=== PATIENT | female | born 1945 | race Caucasian/White ===

== ENCOUNTER 2017-01-26 16:52 | Inpatient (IN) | payer MEDICARE, OTHER ==
[~2017-01-26] VITALS: Ht 160 cm; Wt 75.6 kg
--- NOTE | 2017-01-26 17:31 | PD ---
HPI Chief Complaint: Psychiatric Symptoms Time Seen by Provider: 17:18 Travel History International Travel<30 days: No Contact w/Intl Traveler<30days: No Traveled to known affect area: No History of Present Illness HPI Patient is very disorganized thoughts during HPI. She does not answer some questions with appropriate answers. 71-year-old female presents under [place] act. According to law enforcement report "patient unable to provide coherent history-[] says this is sudden change-she is unable to care for self." The patient denies suicidal or homicidal ideations. Denies history of suicidal attempt. Denies visual or auditory hallucinations. But does say that she sees things clearly now and has a plan to face reality by finding someone who can except the whole truth about what she went through with her . She says her was a compulsive liar and lied to her about everything, except for his name. She says when she has a mental breakdown she forgets everything. Reports history of COPD and hypertension. Says she's takes antipsychotic medications. Reports smoking marijuana. Denies other illicit drug use. Dr. Montero is primary care provider in [place]. [facility] Social History Tobacco Use: No Allergies-Medications (Allergen,Severity, Reaction): Coded Allergies: NSAIDS (Non-Steroidal Anti-Inflamma (Verified Allergy, Unknown, 01/26/17) Penicillins (Verified Allergy, Unknown, 01/26/17) Sulfa (Sulfonamide Antibiotics) (Verified Allergy, Unknown, 01/26/17) lurasidone (Verified Allergy, Unknown, 01/26/17) oxycodone (Verified Allergy, Unknown, 01/26/17) tamoxifen (Verified Allergy, Unknown, 01/26/17) tramadol (Verified Allergy, Unknown, 01/26/17) Reported Meds & Prescriptions Reported Meds & Active Scripts Active Reported Lisinopril 10 Mg Tab 10 Mg PO DAILY Ventolin Hfa 18 GM Inh (Albuterol Sulfate) 90 Mcg/Act Aer 2 Puff INH Q4-6H PRN Lamotrigine 25 Mg Tab 25 Mg PO DAILY Hydroxyzine HCl 10 Mg Tab 10 Mg PO BID Bupropion HCl ER 24 HR (Bupropion HCl) 150 Mg Tab 150 Mg PO DAILY Atrovent HFA 12.9 GM Inh (Ipratropium [place]) 17 Mcg/Actuation Aer 2 Puff INH Q6HR PRN Trazodone (Trazodone HCl) 50 Mg Tab 50 Mg PO HS Fluoxetine (Fluoxetine HCl) 20 Mg Capsule 20 Mg PO DAILY Metoprolol Tartrate 25 Mg Tab 25 Mg PO BID Review of Systems Except as stated in HPI: all other systems reviewed are Neg Physical Exam Narrative GENERAL: Well-nourished, well-developed elderly, female patient, in no acute distress SKIN: Warm and dry. HEAD: Atraumatic. Normocephalic. No facial droop noted. Tongue midline. EYES: Pupils equal and round at 2 mm with brisk reaction. No scleral icterus. No injection or drainage. PERRLA. EOMI. ENT: Mucosa pink and moist. Airway patent. NECK: Trachea midline. No lymphadenopathy. CARDIOVASCULAR: Regular rate and rhythm. No murmur appreciated. RESPIRATORY: No accessory muscle use. Clear to auscultation. Breath sounds equal bilaterally. GASTROINTESTINAL: Abdomen soft, non-tender, nondistended. Hepatic and splenic margins not palpable. Bowel sounds are active 4 quadrants. BACK: No CVA tenderness. MUSCULOSKELETAL: No obvious deformities. No clubbing. No cyanosis. No edema. NEUROLOGICAL: Awake and alert. Oriented 4. No obvious cranial nerve deficits. Motor grossly within normal limits. Normal speech. No ataxia. No mid -line drift. Finger to nose test normal. Moves all extremities. 5/5 strength to all extremities. PSYCHIATRIC: Appropriate mood and affect; insight and judgment normal. Data Data Last Documented VS Vital Signs Date Time Temp Pulse Resp B/P (MAP) Pulse Ox O2 Delivery O2 Flow Rate FiO2 01/26/17 18:00 98.8 77 18 175/76 (109) 97 Room Air Orders Orders Complete Blood Count With Diff (01/26/17 17:31) Comprehensive Metabolic Panel (01/26/17 17:31) Urinalysis - C+S If Indicated (01/26/17 17:31) Psych Screen (01/26/17 17:31) Drug Screen, Random Urine (01/26/17 17:31) Alcohol (Ethanol) (01/26/17 17:31) Salicylates (Aspirin) (01/26/17 17:31) Tylenol (Acetaminophen) (01/26/17 17:31) Ct Brain W/O Iv Contrast(Rout) (01/26/17 ) Acetaminophen (Tylenol) (01/26/17 20:30) Labs Laboratory Tests Test 01/26/17 18:00 White Blood Count 4.8 TH/MM3 Red Blood Count 4.24 MIL/MM3 Hemoglobin 13.1 GM/DL Hematocrit 39.1 % Mean Corpuscular Volume 92.2 FL Mean Corpuscular Hemoglobin 30.8 PG Mean Corpuscular Hemoglobin Concent 33.4 % Red Cell Distribution Width 13.6 % Platelet Count 196 TH/MM3 Mean Platelet Volume 7.9 FL Neutrophils (%) (Auto) 61.6 % Lymphocytes (%) (Auto) 22.0 % Monocytes (%) (Auto) 12.4 % Eosinophils (%) (Auto) 3.3 % Basophils (%) (Auto) 0.7 % Neutrophils # (Auto) 2.9 TH/MM3 Lymphocytes # (Auto) 1.0 TH/MM3 Monocytes # (Auto) 0.6 TH/MM3 Eosinophils # (Auto) 0.2 TH/MM3 Basophils # (Auto) 0.0 TH/MM3 CBC Comment DIFF FINAL Differential Comment Blood Urea Nitrogen 13 MG/DL Creatinine 0.78 MG/DL Random Glucose 97 MG/DL Total Protein 7.5 GM/DL Albumin 3.8 GM/DL Calcium Level 8.9 MG/DL Alkaline Phosphatase 95 U/L Aspartate Amino Transf (AST/SGOT) 19 U/L Alanine Aminotransferase (ALT/SGPT) 26 U/L Total Bilirubin 0.5 MG/DL Sodium Level 138 MEQ/L Potassium Level 3.9 MEQ/L Chloride Level 103 MEQ/L Carbon Dioxide Level 30.1 MEQ/L Anion Gap 5 MEQ/L Estimat Glomerular Filtration Rate 73 ML/MIN Salicylates Level LESS THAN 1.7 MG/DL Acetaminophen Level LESS THAN 2.0 MCG/ML Ethyl Alcohol Level LESS THAN 3 MG/DL [facility] Medical Decision Making Medical Screen Exam Complete: Yes Emergency Medical Condition: Yes Medical Record Reviewed: Yes Differential Diagnosis Altered mental status, urinary tract infection, dementia, psychosis Narrative Course Patient presents under a De La O act. Physical examination and vital signs are essentially unremarkable. Patient has no medical complaints to report. Psych screen has been ordered. If the laboratory results are unremarkable, the patient will be medically cleared for psychiatric evaluation and disposition. CBC, CMP, toxicology unremarkable. CT head concluded: Head CT 01/26/17 0000 Signed Impressions: Service Date/Time: Thursday, January 26, 2017 18:12 - CONCLUSION: Negative noncontrast CT brain. Chris Hernandez MD Urinalysis pending. Diagnosis Primary Impression: Medical clearance for psychiatric admission Condition: Stable Cori Mg [employer]LO[employer] PROGRAM DIRECTOR Jan 26, 2017 17:31
[2017-01-26 18:00] VITALS: BP 175/76; PULSE 77; RESP 18; TEMP 98.8; O2SAT 97
--- NOTE | 2017-01-26 18:30 | RADRPT ---
EXAM DATE/TIME: 01/26/2017 18:12 [place] COMPARISON: No previous studies available for comparison. INDICATIONS : Altered mental status. RADIATION DOSE: 29.72 CTDIvol (mGy) MEDICAL HISTORY : None SURGICAL HISTORY : None. ENCOUNTER: Initial ACUITY: 1 day PAIN SCALE: 0/10 LOCATION: cranial TECHNIQUE: Multiple contiguous axial images were obtained of the head. Using automated exposure control and adj ustment of the mA and/or kV according to patient size, radiation dose was kept as low as reasonably a chievable to obtain optimal diagnostic quality images. DICOM format image data is available electro nically for review and comparison. FINDINGS: CEREBRUM: The ventricles are normal for age. No evidence of midline shift, mass lesion, hemorrhage or acute in farction. No extra-axial fluid collections are seen. POSTERIOR FOSSA: The cerebellum and brainstem are intact. The 4th ventricle is midline. The cerebellopontine angle i s unremarkable. EXTRACRANIAL: The visualized portion of the orbits is intact. SKULL: The calvaria is intact. No evidence of skull fracture. CONCLUSION: Negative noncontrast CT brain. Chris Hernandez MD on January 26, 2017 at 18:27 Board Certified Radiologist. This report was verified electronically.
[2017-01-26 18:37] LABS: AUTOMATED NEUTROPHIL # 2.9 TH/MM3 (1.8-7.7); BASOPHIL % 0.7 % (0.0-2.0); EOSINOPHIL # 0.2 TH/MM3 (0-0.4); EOSINOPHIL % 3.3 % (0.0-4.0); HEMATOCRIT 39.1 % (35.0-46.0); HEMO FLAGS DIFF FINAL; MEAN CELL VOLUME 92.2 FL (80.0-100.0); MEAN CORPUSCULAR HEMOGLOBIN 30.8 PG (27.0-34.0); MEAN CORPUSCULAR HGB CONC 33.4 % (32.0-36.0); MONO % 12.4 % (0.0-8.0); NEUT % 61.6 % (16.0-70.0); PLATELET COUNT 196 TH/MM3 (150-450); RED BLOOD COUNT 4.24 MIL/MM3 (4.00-5.30); RED CELL DISTRIBUTION WIDTH 13.6 % (11.6-17.2); WHITE BLOOD COUNT 4.8 TH/MM3 (4.0-11.0)
[2017-01-26] MEDS ORDERED: METO25TA3 PO (18:37)
[2017-01-26] MEDS ORDERED: LAMO25TA PO (18:37)
[2017-01-26] MEDS ORDERED: HYDR-755 PO (18:37)
[2017-01-26] MEDS ORDERED: FLUO20CA12 PO (18:37)
[2017-01-26] MEDS ORDERED: IPRA17I INH (18:37)
[2017-01-26] MEDS ORDERED: LISI10TA3 PO (18:37)
[2017-01-26] MEDS ORDERED: TRAZ50TA12 PO (18:37)
[2017-01-26] MEDS ORDERED: BUPR150T3 PO (18:37)
[2017-01-26] MEDS ORDERED: VENTAER INH (18:37)
[2017-01-26 18:58] LABS: ANION GAP 5 MEQ/L (5-15); AST (GOT) 19 U/L (15-37); BICARBONATE 30.1 MEQ/L (21.0-32.0); BLOOD UREA NITROGEN 13 MG/DL (7-18); CHLORIDE 103 MEQ/L (98-107); GLOMERULAR FILTRATION RATE 73 ML/MIN (>89); POTASSIUM 3.9 MEQ/L (3.5-5.1); SODIUM (NA) 138 MEQ/L (136-145)
[2017-01-26 18:59] LABS: ALT (GPT) 26 U/L (10-53)
[2017-01-26 19:01] LABS: ALKALINE PHOSPHATASE 95 U/L (45-117); TOTAL BILIRUBIN ADULT 0.5 MG/DL (0.2-1.0)
[2017-01-26 19:09] LABS: ACETAMINOPHEN LESS THAN 2.0 MCG/ML (10.0-30.0); ALCOHOL LESS THAN 3 MG/DL (0-5)
--- NOTE | 2017-01-26 19:20 | PD ---
History of Present Illness Chief Complaint: Psychiatric Symptoms Time Seen by Provider: 18:50 Travel History International Travel<30 Days: No Contact w/Intl Traveler<30days: No Known affected area: No Legal Status Legal Status: Involuntary (Dr. Martinez) History of Present Illness: History of Present Illness HPI Patient is a 71-year-old female who presents to the emergency Department under an involuntary status having been sent to the hospital by her outpatient psychiatrist Dr. Martinez. The report gives her a diagnosis of psychosis NOS. Supporting evidence states patient unable to provide coherent history. Boyfriend says this is sudden change. She is unable to care for herself. As per information obtained from the patient as well as from a phone call that the psychiatrist made to nursing staff the patient had a change in her medication within the last 1-2 weeks. She was started on lamotrigine around 1-2 weeks ago. There is no previous history with this patient. The patient is seen in main ED she is awake and alert response to her name. She is aware that she is in the hospital. She is cooperative and very pleasant. Her thoughts are disorganized and she is unable to engage in providing any kind of logical history. When I ask her why she is here she states" I've tried to find the cause but every time I try to find out I get lost." She does tell me that since she started the Lamictal " the Lamictal has helped me find what I had hidden". She then goes on to say that she is in crisis because she started the Lamictal. She does deny any suicidal or homicidal ideation. Patient perseverates on trying to" find what is hidden" and "trying to find the cause of her breakdowns". No other clinical information is obtained at this time due to her inability to participate in evaluation. As per ED documentation the patient reports having smoked marijuana. Toxicology report is pending. . [facility] Past Medical History Anxiety: Yes Depression: Yes COPD: Yes ?: Not Tubal Ligation: Yes Past Surgical History Tympanostomy Tube: Yes Psychiatric History Psychiatric History Hx Psychiatric Treatment: Has been in outpatient care with Dr. Martinez. Patient does tell me that she was once admitted here but there is no record of such visit History of Inpatient Treatment: Yes Guns or firearms in home: No (unable to confirm at this time) Social History Per documentation on the chart the patient is and she is living with a boyfriend. She is a retired nurse. Hx Alcohol Use: No Hx Tobacco Use: No Hx Substance Use: No Substance Use Type: Marijuana (pending toxicology confirmation) Hx of Substance Use Treatment: No Family Psychiatric History Unable to obtain Allergies-Medications (Allergen,Severity, Reaction): Coded Allergies: NSAIDS (Non-Steroidal Anti-Inflamma (Verified Allergy, Unknown, 01/26/17) Penicillins (Verified Allergy, Unknown, 01/26/17) Sulfa (Sulfonamide Antibiotics) (Verified Allergy, Unknown, 01/26/17) lurasidone (Verified Allergy, Unknown, 01/26/17) oxycodone (Verified Allergy, Unknown, 01/26/17) tamoxifen (Verified Allergy, Unknown, 01/26/17) tramadol (Verified Allergy, Unknown, 01/26/17) Reported Meds & Prescriptions Reported Meds & Active Scripts Active Reported Lisinopril 10 Mg Tab 10 Mg PO DAILY Ventolin Hfa 18 GM Inh (Albuterol Sulfate) 90 Mcg/Act Aer 2 Puff INH Q4-6H PRN Lamotrigine 25 Mg Tab 25 Mg PO DAILY Hydroxyzine HCl 10 Mg Tab 10 Mg PO BID Bupropion HCl ER 24 HR (Bupropion HCl) 150 Mg Tab 150 Mg PO DAILY Atrovent HFA 12.9 GM Inh (Ipratropium [place]) 17 Mcg/Actuation Aer 2 Puff INH Q6HR PRN Trazodone (Trazodone HCl) 50 Mg Tab 50 Mg PO HS Fluoxetine (Fluoxetine HCl) 20 Mg Capsule 20 Mg PO DAILY Metoprolol Tartrate 25 Mg Tab 25 Mg PO BID Review of Systems ROS Limitations: Poor Historian Mental Status Examination Appearance: Appropriate, Well dressed/well groomed Consciousness: Alert Orientation: Person, Place, Situation Motor Activity: Normal gait (patient remained in bed) Speech: Other (incoherent at times) Language: Perseveration (on finding the cause) Fund of Knowledge: Poor (not tested) Attention and Concentration: Easily Distracted Memory: Impaired Mood: Anxious Affect: Appropriate Thought Process & Associations: Circumstantial, Disorganized, Tangential Thought Content: Other (perseverates on finding the cause) Hallucination Type: None (does not appear internally stimulated) Delusion Type: None Suicidal Ideation: No Suicidal Plan: No Suicidal Intention: No Homicidal Ideation: No Homicidal Plan: No Insight: Poor Judgment: Poor MDM Medical Decision Making Medical Record Reviewed: Yes Assessment/Plan Patient is a 71-year-old female who presents to the emergency Department under an involuntary status having been sent to the hospital by her outpatient psychiatrist Dr. Martinez. The report gives her a diagnosis of psychosis NOS. Supporting evidence states patient unable to provide coherent history. Boyfriend says this is sudden change. She is unable to care for herself. As per information obtained from the patient as well as from a phone call that the psychiatrist made to nursing staff the patient had a change in her medication within the last 1-2 weeks. She was started on lamotrigine around 1-2 weeks ago. There is no previous history with this patient. The patient remains disorganized, with incoherent thought patterns that time and unable to provide a logical history. Patient meets required for increased level of care is provided on inpatient psychiatric unit. She meets criteria for involuntary admission at this time. She will be admitted under the care of Dr. Schreiber. Patient unable to care for herself at this time. Orders Orders Complete Blood Count With Diff (01/26/17 17:31) Comprehensive Metabolic Panel (01/26/17 17:31) Urinalysis - C+S If Indicated (01/26/17 17:31) Psych Screen (01/26/17 17:31) Drug Screen, Random Urine (01/26/17 17:31) Alcohol (Ethanol) (01/26/17 17:31) Salicylates (Aspirin) (01/26/17 17:31) Tylenol (Acetaminophen) (01/26/17 17:31) Ct Brain W/O Iv Contrast(Rout) (01/26/17 ) Results Vital Signs Date Time Temp Pulse Resp B/P (MAP) Pulse Ox O2 Delivery O2 Flow Rate FiO2 01/26/17 18:00 98.8 77 18 175/76 (109) 97 Room Air Laboratory Tests Test 01/26/17 18:00 White Blood Count 4.8 Red Blood Count 4.24 Hemoglobin 13.1 Hematocrit 39.1 Mean Corpuscular Volume 92.2 Mean Corpuscular Hemoglobin 30.8 Mean Corpuscular Hemoglobin Concent 33.4 Red Cell Distribution Width 13.6 Platelet Count 196 Mean Platelet Volume 7.9 Neutrophils (%) (Auto) 61.6 Lymphocytes (%) (Auto) 22.0 Monocytes (%) (Auto) 12.4 Eosinophils (%) (Auto) 3.3 Basophils (%) (Auto) 0.7 Neutrophils # (Auto) 2.9 Lymphocytes # (Auto) 1.0 Monocytes # (Auto) 0.6 Eosinophils # (Auto) 0.2 Basophils # (Auto) 0.0 CBC Comment DIFF FINAL Differential Comment Blood Urea Nitrogen 13 Creatinine 0.78 Random Glucose 97 Total Protein 7.5 Albumin 3.8 Calcium Level 8.9 Alkaline Phosphatase 95 Aspartate Amino Transf (AST/SGOT) 19 Alanine Aminotransferase (ALT/SGPT) 26 Total Bilirubin 0.5 Sodium Level 138 Potassium Level 3.9 Chloride Level 103 Carbon Dioxide Level 30.1 Anion Gap 5 Estimat Glomerular Filtration Rate 73 Salicylates Level LESS THAN 1.7 Acetaminophen Level LESS THAN 2.0 Ethyl Alcohol Level LESS THAN 3 Diagnosis Primary Impression: Psychosis Admitting Information Admitting Physician Requests: Admit Problem Qualifiers Primary Impression: Psychosis Qualified Codes: F29 - Unspecified psychosis not due to a substance or known physiological condition Dhara Muñiz [facility] Jan 26, 2017 19:20
[2017-01-26] MEDS ORDERED: ACETAMINOPHEN 325 MG TAB PO ONE (20:30)
[2017-01-26] MEDS ORDERED: MAGNESIUM HYDROXIDE SUSP 30 ML CUP PO PRN (21:30)
[2017-01-26] MEDS ORDERED: ALUMINUM/MAGNESIUM/SIMETH 30 ML CUP PO PRN (21:30)
[2017-01-26 21:54] LABS: BLOOD, URINE TRACE (NEG); COMMENT (UR) CULT NOT INDICATED; CULTURE IF INDICATED CULT NOT INDICATED; GLUCOSE,URINE NEG (NEG); KETONE, URINE NEG (NEG); NITRITE,URINE NEG (NEG); PH, URINE 6.5 (5.0-8.5); SQUAMOUS EPITHELIAL CELL URINE <1 /hpf (0-5); URINE COLOR LIGHT-YELLOW (YELLW/STRAW)
[2017-01-26 22:42] VITALS: BP 171/72; PULSE 82; RESP 16; O2SAT 95
[2017-01-26] MEDS ORDERED: METOPROLOL TARTRATE 25 MG TAB PO ONE (23:00)
[2017-01-26 23:35] VITALS: BP 169/74; PULSE 76; RESP 18; TEMP 97.7; O2SAT 97
[2017-01-27 05:32] VITALS: BP 159/72; PULSE 78; RESP 16; TEMP 98.1; O2SAT 96
[2017-01-27] MEDS ORDERED: ALBUTEROL SULFATE 90 MCG/ACT HFA 8 GM INHALER INH PRN (07:15)
[2017-01-27] MEDS ORDERED: RESP: IPRATROPIUM 0.5 MG/2.5 ML NEB INH PRN (07:15)
[2017-01-27 07:44] LABS: ANION GAP 5 MEQ/L (5-15); BLOOD UREA NITROGEN 12 MG/DL (7-18); CHLORIDE 103 MEQ/L (98-107); GLOMERULAR FILTRATION RATE 80 ML/MIN (>89); POTASSIUM 4.3 MEQ/L (3.5-5.1); SODIUM (NA) 139 MEQ/L (136-145)
[2017-01-27 08:16] LABS: LDL CHOLESTEROL 61 MG/DL (0-99)
[2017-01-27] MEDS: METOPROLOL TARTRATE 25 MG TAB PO SCH ×2 (08:39→21:23)
[2017-01-27] MEDS: ACETAMINOPHEN 325 MG TAB PO PRN ×2 (08:39→13:51)
[2017-01-27] MEDS: LISINOPRIL 10 MG TAB PO SCH (08:40)
--- NOTE | 2017-01-27 10:30 | EKG ---
Date Performed: 01/26/2017 Time Performed: 22:36:39 PTAGE: 71 years EKG: Sinus rhythm WITH OCCASIONAL SUPRAVENTRICULAR PREMATURE COMPLEXES BORDERLINE ECG NO PREVIOUS TRACING DOCTOR: Panda Yang Interpretating Date/Time 01/27/2017 10:27:23
[2017-01-27 10:51] LABS: HEMOGLOBIN A1a 1.1 %; HEMOGLOBIN A1b 0.8 %; HEMOGLOBIN Ao 86.2 %; HEMOGLOBIN F 0.8 %; HEMOGLOBIN LA1C 1.9 %; HEMOGLOBIN P3 3.6 %
--- NOTE | 2017-01-27 13:44 | PD.CONS ---
HPI Service [facility] Hospitalists Consult Requested By Dr. 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 Patient has a past medical history which includes COPD, hypertension anxiety and breast cancer status post right breast lumpectomy and radiation treatment. Patient is currently admitted to inpatient psychiatric center for psychosis not otherwise specified. Patient was involuntarily admitted by outpatient psychiatrist Dr. Martinez, who was covering for her outpatient psychiatrist Dr. Canchola. Patient is currently unreliable therefore information gathered from patient as well as prior computerized charting.. Appears the patient was started on Lamotrigine approximately weeks ago. Patient's boyfriend reported to the ER physician that he has noticed a sudden change in her actions and mental state. There is no report of shortness of breath, chest pain, nausea, vomiting, diarrhea, constipation, fevers, chills, cough or congestion. Review of Systems ROS Limitations: Psychotic, Poor Historian Constitutional: DENIES: Fatigue, Fever, Chills Eyes: DENIES: Blurred vision, Diplopia, Vision loss Respiratory: DENIES: Cough, Sputum production, Shortness of breath Cardiovascular: DENIES: Chest pain, Palpitations, Lower Extremity Edema Gastrointestinal: DENIES: Abdominal pain, Constipation, Diarrhea Neurologic: DENIES: Headache, Localized weakness, Speech Problems Psychiatric: COMPLAINS OF: Confusion, DENIES: Anxiety, Depression Past Family Social History Past Medical History COPD, hypertension, anxiety and breast cancer status post right breast lumpectomy and radiation Past Surgical History Right breast lumpectomy, tubal ligation, right knee replacement Reported Medications Lisinopril 10 Mg Tab 10 Mg PO DAILY Ventolin Hfa 18 GM Inh (Albuterol Sulfate) 90 Mcg/Act Aer 2 Puff INH Q4-6H PRN Lamotrigine 25 Mg Tab 25 Mg PO DAILY Hydroxyzine HCl 10 Mg Tab 10 Mg PO BID Bupropion HCl ER 24 HR (Bupropion HCl) 150 Mg Tab 150 Mg PO DAILY Atrovent HFA 12.9 GM Inh (Ipratropium [place]) 17 Mcg/Actuation Aer 2 Puff INH Q6HR PRN Trazodone (Trazodone HCl) 50 Mg Tab 50 Mg PO HS Fluoxetine (Fluoxetine HCl) 20 Mg Capsule 20 Mg PO DAILY Metoprolol Tartrate 25 Mg Tab 25 Mg PO BID Allergies: Coded Allergies: NSAIDS (Non-Steroidal Anti-Inflamma (Verified Allergy, Unknown, 01/26/17) Penicillins (Verified Allergy, Unknown, 01/26/17) Sulfa (Sulfonamide Antibiotics) (Verified Allergy, Unknown, 01/26/17) lurasidone (Verified Allergy, Unknown, 01/26/17) oxycodone (Verified Allergy, Unknown, 01/26/17) tamoxifen (Verified Allergy, Unknown, 01/26/17) tramadol (Verified Allergy, Unknown, 01/26/17) Active Ordered Medications Current Medications Medications (Trade) Dose Ordered Sig/Sukhi Route Start Time Stop Time Status Last Admin (Tylenol) 650 mg Q4H PRN PO 01/26/17 21:30 01/27/17 08:39 (Milk Of Magnesia Liq) 30 ml DAILY PRN PO 01/26/17 21:30 (Mag-Al Plus Susp Liq) 30 ml Q6H PRN PO 01/26/17 21:30 (Proair Hfa Inh) 2 puff Q4HR PRN INH 01/27/17 07:15 (Atrovent Neb) 0.5 mg Q6HR NEB PRN INH 01/27/17 07:15 (Prinivil) 10 mg DAILY PO 01/27/17 09:00 01/27/17 08:40 (Lopressor) 25 mg BID PO 01/27/17 09:00 01/27/17 08:39 (Desyrel) 50 mg HS PO 01/27/17 21:00 Future Hold (Wellbutrin Xl 24 Hr) 150 mg DAILY PO 01/27/17 13:45 UNV (PROzac) 20 mg DAILY PO 01/27/17 13:45 UNV Family History Father at 67 secondary to OR, Brother of PCP secondary to HIV Social History Patient lives at home with her significant other Occasional glass of wine Denies current tobacco use quit smoking in 1997 Physical Exam Vital Signs Vital Signs Date Time Temp Pulse Resp B/P (MAP) Pulse Ox O2 Delivery O2 Flow Rate FiO2 01/27/17 05:32 98.1 78 16 159/72 (101) 96 01/26/17 23:35 97.7 76 18 169/74 (105) 97 01/26/17 23:34 01/26/17 22:42 82 16 171/72 (105) 95 Room Air 01/26/17 18:00 98.8 77 18 175/76 (109) 97 Room Air Physical Exam GENERAL: This is a well-nourished, well-developed patient, appears confused with circular conversation SKIN: No rashes, ecchymoses or lesions. Cool and dry. HEAD: Atraumatic. Normocephalic. No temporal or scalp tenderness. EYES: Extraocular motions intact. No scleral icterus. No injection or drainage. CARDIOVASCULAR: Regular rate and rhythm RESPIRATORY: Clear to auscultation. Breath sounds equal bilaterally. GASTROINTESTINAL: Abdomen soft, non-tender, nondistended. No hepato-splenomegaly , or palpable masses. No guarding. MUSCULOSKELETAL: Extremities without clubbing, cyanosis, or edema. No joint tenderness, effusion, or edema noted. No calf tenderness. Negative Homans sign bilaterally. NEUROLOGICAL: Awake and alert, circular/fragmented conversation. No focal deficits noted. Motor and sensory grossly within normal limits. 5 out of 5 muscle strength in all muscle groups. Laboratory Laboratory Tests Test 01/26/17 18:00 01/26/17 21:16 01/27/17 06:28 White Blood Count 4.8 Red Blood Count 4.24 Hemoglobin 13.1 Hematocrit 39.1 Mean Corpuscular Volume 92.2 Mean Corpuscular Hemoglobin 30.8 Mean Corpuscular Hemoglobin Concent 33.4 Red Cell Distribution Width 13.6 Platelet Count 196 Mean Platelet Volume 7.9 Neutrophils (%) (Auto) 61.6 Lymphocytes (%) (Auto) 22.0 Monocytes (%) (Auto) 12.4 Eosinophils (%) (Auto) 3.3 Basophils (%) (Auto) 0.7 Neutrophils # (Auto) 2.9 Lymphocytes # (Auto) 1.0 Monocytes # (Auto) 0.6 Eosinophils # (Auto) 0.2 Basophils # (Auto) 0.0 CBC Comment DIFF FINAL Differential Comment Blood Urea Nitrogen 13 12 Creatinine 0.78 0.72 Random Glucose 97 89 Total Protein 7.5 Albumin 3.8 Calcium Level 8.9 8.7 Alkaline Phosphatase 95 Aspartate Amino Transf (AST/SGOT) 19 Alanine Aminotransferase (ALT/SGPT) 26 Total Bilirubin 0.5 Sodium Level 138 139 Potassium Level 3.9 4.3 Chloride Level 103 103 Carbon Dioxide Level 30.1 31.0 Anion Gap 5 5 Estimat Glomerular Filtration Rate 73 80 Salicylates Level LESS THAN 1.7 Acetaminophen Level LESS THAN 2.0 Ethyl Alcohol Level LESS THAN 3 Urine Color LIGHT-YELLOW Urine Turbidity CLEAR Urine pH 6.5 Urine Specific [place] 1.008 Urine Protein NEG Urine Glucose (UA) NEG Urine Ketones NEG Urine Occult Blood TRACE Urine Nitrite NEG Urine Bilirubin NEG Urine Urobilinogen LESS THAN 2.0 Urine Leukocyte Esterase SMALL Urine RBC 2 Urine WBC 1 Urine Squamous Epithelial Cells <1 Microscopic Urinalysis Comment CULT NOT INDICATED Urine Opiates Screen NEG Urine Barbiturates Screen NEG Urine Amphetamines Screen NEG Urine Benzodiazepines Screen NEG Urine Cocaine Screen NEG Urine Cannabinoids Screen NEG Hemoglobin A1c 5.1 Triglycerides Level 72 Cholesterol Level 192 LDL Cholesterol 61 HDL Cholesterol 117.0 Cholesterol/HDL Ratio 1.64 Vitamin B12 Level 466 25-Hydroxy Vitamin D Total 28.5 Result Diagram: 01/26/17 1800 01/27/17 0628 Imaging Last Impressions Head CT 01/26/17 0000 Signed Impressions: Service Date/Time: Thursday, January 26, 2017 18:12 - CONCLUSION: Negative noncontrast CT brain. Chris Hernandez MD Assessment and Plan Problem List: (1) Psychosis ICD Codes: F29 - Unspecified psychosis not due to a substance or known physiological condition Status: Acute Plan: Psychosis Patient reports being started recently on Lamictal by outpatient psychiatrist management per physiatric team CT head reviewed negative noncontrast CT brain WBC 4.8, patient afebrile UA reviewed no culture indicated HTN blood pressure noted to be high concerned that has not been taking her antihypertensive medication due to current mental state resume home Metoprolol 25 mg BID and Lisinopril 10 mg daily monitor BP trend COPD does not appear to be in acute exacerbation resume patient's home Anoro Ellipta daily Duonebs as needed DVT prophylaxis encourage ambulation (2) HTN (hypertension) ICD Codes: I10 - Essential (primary) hypertension (3) COPD (chronic obstructive pulmonary disease) ICD Codes: J44.9 - Chronic obstructive pulmonary disease, unspecified Problem Qualifiers (1) Psychosis: Qualified Codes: F29 - Unspecified psychosis not due to a substance or known physiological condition Jessica Aranda Jan 27, 2017 13:44
--- NOTE | 2017-01-27 13:47 | HHI.HP ---
Provisional Diagnosis Admission Date Jan 26, 2017 at 21:31 [place] I. Unspecified psychotic disorder Certification of Person's Competence To Provide Express and Informed Consent I have personally examined Maria L Hendricks , a person being served at [facility] on, Jan 27, 2017 13:32. Express and informed consent means consent voluntarily given in writing, by a competent person, after sufficient explanation and disclosure of the subject matter involved to enable the person to make a knowing and willful decision without any element of force, fraud, deceit, duress, or other form of constraint or coercion. This person is 18 years of age or older, is not now known to be incompetent to consent to treatment with a guardian advocate, and does not have a health care surrogate or proxy currently making medical treatment decisions. I have found this person to be one of the following: [] Competent to provide express and informed consent, as defined above, for voluntary admission to this facility and is competent to provide express and informed consent for treatment. He/she has the consistent capacity to make well reasoned, willful, and knowing decisions concerning his or her medical or mental health treatment. The person fully and consistently understands the purpose of the admission for examination/placement and is fully capable of personally exercising all rights assured under [place] [x] Incompetent to provide express and informed consent to voluntary admission, and this is incompetent to provide express and informed consent to treatment. The person must be transferred to involuntary status and a petition for a guardian advocate filed with the Circuit Court. [] Refusing to provide express and informed consent to voluntary admission but is competent to provide express and informed consent for treatment. The person must be discharged or transferred to involuntary status. Form shall be completed within 24 hours of a person's arrival at the receiving facility and filed in the clinical record of each person: 1. Admitted on a voluntary basis 2. Permitted to provide express and informed consent to his/her own treatment 3. Allowed to transfer from involuntary to voluntary status 4. Prior to permitting a person to consent to his or her own treatment after having been previously found incompetent to consent to treatment. 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 As per [place] act "patient unable to provide coherent history, sudden change, unable to care for self". As per ED note patient denied any SI, HI, perceptual disturbances but did state that her was "liar" and the patient was sent to the hospital from her outpatient provider Dr. Martniez with concerns of patient being unable to care for self at this time. Patient found sitting in hospital bed, cooperative with interview today. Patient states that she had a recent drug reaction to Lamictal that was prescribed to her recently 4 days ago by her outpatient psychiatrist, Dr. Forrest. She states that she had noticed that her speech had been or rapid, "talking fast" and feeling nervous; "I was hyper" . Patient states that her boyfriend had stated that she was a different person recently. Patient at this time is alert and oriented 3. Patient states that she had a "nervous breakdown" at return back to her outpatient psychiatrist office but was seen by a covering psychiatrist, Dr. Martinez who was covering for Dr. Canchola and had suggested that she be brought to the hospital due to [place] act "because I was very nervous and tearful". Patient this time has difficulty recalling recent events surrounding her recent start of Lamictal that she believed caused her presentation. Patient states that she having much difficulty with memory stating "I got my time like a fuse" and believes that he might have been due to previous stroke or having "nervous breakdown". Family psychiatric history: Mother with depression, no suicide in a family Past psychiatric history: Previous psychiatric diagnoses depression and anxiety , 1 previous psychiatric hospitalization years ago, no previous suicide attempt or self-injurious behavior. Outpatient psychiatric provider is . Recent medication regimen includes Wellbutrin, Prozac, Lamictal and previously Latuda. Patient denies any history of abuse. Substance use history: Patient reports marijuana use once per week, last time being 1 month ago, EtOH socially last happy one month ago patient denies use of any other illegal substances. Past medical history: COPD, hypertension, primary care doctor is in [place]. 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 Collateral contact: Linda [phone] Review of Systems Except as stated in HPI: all other systems reviewed are Neg Past Psych History Psychological trauma history Denies Violence risk - others (6 mos) Low Violence risk - self (6 mos) Low Substance Abuse History Drugs/Alcohol past 12 months Patient reports marijuana use once per week, last time being 1 month ago, EtOH socially last happy one month ago patient denies use of any other illegal substances. Past Family Social History Coded Allergies: NSAIDS (Non-Steroidal Anti-Inflamma (Verified Allergy, Unknown, 01/26/17) Penicillins (Verified Allergy, Unknown, 01/26/17) Sulfa (Sulfonamide Antibiotics) (Verified Allergy, Unknown, 01/26/17) lurasidone (Verified Allergy, Unknown, 01/26/17) oxycodone (Verified Allergy, Unknown, 01/26/17) tamoxifen (Verified Allergy, Unknown, 01/26/17) tramadol (Verified Allergy, Unknown, 01/26/17) Reported Medications Lisinopril (Lisinopril) 10 Mg Tab, 10 MG PO DAILY, #30 TAB 0 Refills 01/26/17 Albuterol 18 GM Inh (Ventolin Hfa 18 GM Inh) 90 Mcg/Act Aer, 2 PUFF INH Q4-6H Y for SHORTNESS OF BREATH, #1 INHALER 0 Refills 01/26/17 Lamotrigine (Lamotrigine) 25 Mg Tab, 25 MG PO DAILY for Control Seizures, #30 TAB 0 Refills 01/26/17 Hydroxyzine HCl (Hydroxyzine HCl) 10 Mg Tab, 10 MG PO BID, TAB 0 Refills 01/26/17 Bupropion HCl ER 24 HR (Bupropion HCl ER 24 HR) 150 Mg Tab, 150 MG PO DAILY for Control Depression, TAB 0 Refills 01/26/17 Ipratropium HFA 12.9 GM Inh (Atrovent HFA 12.9 GM Inh) 17 Mcg/Actuation Aer, 2 PUFF INH Q6HR Y for SHORTNESS OF BREATH, #1 INHALER 0 Refills 01/26/17 Trazodone (Trazodone) 50 Mg Tab, 50 MG PO HS for Control Depression, #30 TAB 0 Refills 01/26/17 Fluoxetine (Fluoxetine) 20 Mg Capsule, 20 MG PO DAILY, #30 CAP 0 Refills 01/26/17 Metoprolol Tartrate (Metoprolol Tartrate) 25 Mg Tab, 25 MG PO BID, #60 TAB 0 Refills 01/26/17 Current Medications Medications (Trade) Dose Ordered Sig/Sukhi Route Start Time Stop Time Status Last Admin (Tylenol) 650 mg Q4H PRN PO 01/26/17 21:30 01/27/17 08:39 (Milk Of Magnesia Liq) 30 ml DAILY PRN PO 01/26/17 21:30 (Mag-Al Plus Susp Liq) 30 ml Q6H PRN PO 01/26/17 21:30 (Proair Hfa Inh) 2 puff Q4HR PRN INH 01/27/17 07:15 (Atrovent Neb) 0.5 mg Q6HR NEB PRN INH 01/27/17 07:15 (Prinivil) 10 mg DAILY PO 01/27/17 09:00 01/27/17 08:40 (Lopressor) 25 mg BID PO 01/27/17 09:00 01/27/17 08:39 (Desyrel) 50 mg HS PO 01/27/17 21:00 Future Hold Family Psych History Mother with depression, no suicides in the family Social History , retired nurse, lives with boyfriend, supportive social security benefits, denies access to firearms. Patient's Strengths (min. 2) Verbal and communicative Physical Exam Patient noted to be in acute distress, no gross motor abnormalities noted this time, no tremors or EPS, no evidence of psychomotor agitation or retardation. Vital Signs Vital Signs Date Time Temp Pulse Resp B/P (MAP) Pulse Ox O2 Delivery O2 Flow Rate FiO2 01/27/17 05:32 98.1 78 16 159/72 (101) 96 01/26/17 22:42 Room Air Lab Results Labs reviewed. Test 01/26/17 18:00 01/26/17 21:16 01/27/17 06:28 White Blood Count 4.8 TH/MM3 Red Blood Count 4.24 MIL/MM3 Hemoglobin 13.1 GM/DL Hematocrit 39.1 % Mean Corpuscular Volume 92.2 FL Mean Corpuscular Hemoglobin 30.8 PG Mean Corpuscular Hemoglobin Concent 33.4 % Red Cell Distribution Width 13.6 % Platelet Count 196 TH/MM3 Mean Platelet Volume 7.9 FL Neutrophils (%) (Auto) 61.6 % Lymphocytes (%) (Auto) 22.0 % Monocytes (%) (Auto) 12.4 % Eosinophils (%) (Auto) 3.3 % Basophils (%) (Auto) 0.7 % Neutrophils # (Auto) 2.9 TH/MM3 Lymphocytes # (Auto) 1.0 TH/MM3 Monocytes # (Auto) 0.6 TH/MM3 Eosinophils # (Auto) 0.2 TH/MM3 Basophils # (Auto) 0.0 TH/MM3 CBC Comment DIFF FINAL Differential Comment Blood Urea Nitrogen 13 MG/DL 12 MG/DL Creatinine 0.78 MG/DL 0.72 MG/DL Random Glucose 97 MG/DL 89 MG/DL Total Protein 7.5 GM/DL Albumin 3.8 GM/DL Calcium Level 8.9 MG/DL 8.7 MG/DL Alkaline Phosphatase 95 U/L Aspartate Amino Transf (AST/SGOT) 19 U/L Alanine Aminotransferase (ALT/SGPT) 26 U/L Total Bilirubin 0.5 MG/DL Sodium Level 138 MEQ/L 139 MEQ/L Potassium Level 3.9 MEQ/L 4.3 MEQ/L Chloride Level 103 MEQ/L 103 MEQ/L Carbon Dioxide Level 30.1 MEQ/L 31.0 MEQ/L Anion Gap 5 MEQ/L 5 MEQ/L Estimat Glomerular Filtration Rate 73 ML/MIN 80 ML/MIN Salicylates Level LESS THAN 1.7 MG/DL Acetaminophen Level LESS THAN 2.0 MCG/ML Ethyl Alcohol Level LESS THAN 3 MG/DL Urine Color LIGHT-YELLOW Urine Turbidity CLEAR Urine pH 6.5 Urine Specific [place] 1.008 Urine Protein NEG mg/dL Urine Glucose (UA) NEG mg/dL Urine Ketones NEG mg/dL Urine Occult Blood TRACE Urine Nitrite NEG Urine Bilirubin NEG Urine Urobilinogen LESS THAN 2.0 MG/DL Urine Leukocyte Esterase SMALL Urine RBC 2 /hpf Urine WBC 1 /hpf Urine Squamous Epithelial Cells <1 /hpf Microscopic Urinalysis Comment CULT NOT INDICATED Urine Opiates Screen NEG Urine Barbiturates Screen NEG Urine Amphetamines Screen NEG Urine Benzodiazepines Screen NEG Urine Cocaine Screen NEG Urine Cannabinoids Screen NEG Hemoglobin A1c 5.1 % Triglycerides Level 72 MG/DL Cholesterol Level 192 MG/DL LDL Cholesterol 61 MG/DL HDL Cholesterol 117.0 MG/DL Cholesterol/HDL Ratio 1.64 RATIO Vitamin B12 Level 466 PG/ML 25-Hydroxy Vitamin D Total 28.5 ng/ML Mental Status Examination Appearance: Appropriate, Well dressed/well groomed Consciousness: Alert Orientation: Person, Place, Situation Motor Activity: Normal gait Speech: Unremarkable Language: Adequate Fund of Knowledge: Poor (not tested) Attention and Concentration: Adequate Memory: Impaired Mood: Anxious Affect: Appropriate Thought Process & Associations: Linear Thought Content: Other (perseverates on finding the cause) Hallucination Type: None Delusion Type: None Suicidal Ideation: No Suicidal Plan: No Suicidal Intention: No Homicidal Ideation: No Homicidal Plan: No Homicidal Intention: No Insight: Poor Judgment: Poor Assessment & Plan Problem List: (1) Psychosis ICD Codes: F29 - Unspecified psychosis not due to a substance or known physiological condition Status: Acute Assessment & Plan Estimated LOS: 5-7 days. Patient is a 71-year-old woman who carries a diagnosis of depression and anxiety, 1 remote psychiatric hospitalization, marijuana use disorder, who was brought in under [employer] act for concerns of ability care for self. Patient at this time noted to be confused and poor memory regarding recent events surrounding her admission. Patient will recently just referred to the hospital from outpatient mental health provider with concern of patient's recent mental status changes. Unclear whether patient 's recent mental status is due to underlying medical etiology or to primary psychotic disorder. Patient's presentation today that elicit any mood or psychotic symptoms but noted to have some confusion and memory impairment regarding recent events prior to her admission. Due to patient's history of documented symptoms and behavior as per outpatient provider there is concern for patient's ability to care for self at this time has collateral still pending. We'll petition patient for involuntary admission, second opinion requested. We'll continue patient on Wellbutrin and Prozac will defer from starting antipsychotic as patient has no psychotic symptoms elicited at this time. We'll continue to monitor mood and behavior. Collateral information pending. Hospital consult placed for management of medical issues. Discharge planning in progress Discharge Planning Patient to return back to boyfriend's residence once psychiatrically stable Problem Qualifiers (1) Psychosis: Qualified Codes: F29 - Unspecified psychosis not due to a substance or known physiological condition Reinaldo George MD Jan 27, 2017 13:47
[2017-01-27] MEDS: buPROPion HCL 150 MG SUSTAINED RELEASE TAB PO SCH (14:09)
[2017-01-27] MEDS: FLUoxetine HCL 20 MG CAP PO SCH (14:09)
[2017-01-27] MEDS ORDERED: UMEC1AER INH (15:43)
[2017-01-27 16:41] VITALS: BP 157/78; PULSE 73; RESP 17; TEMP 98; O2SAT 95
[2017-01-27] MEDS ORDERED: RESP: ALBUTEROL 2.5 MG/IPRATROPIUM 0.5 MG NEB (PRN) NEB (17:00)
[2017-01-28 05:37] VITALS: BP 149/69; PULSE 68; RESP 18; TEMP 97.4; O2SAT 96
[2017-01-28] MEDS: LISINOPRIL 10 MG TAB PO SCH (08:30)
[2017-01-28] MEDS: buPROPion HCL 150 MG SUSTAINED RELEASE TAB PO SCH (08:30)
[2017-01-28] MEDS: METOPROLOL TARTRATE 25 MG TAB PO SCH ×2 (08:30→21:54)
[2017-01-28] MEDS: FLUoxetine HCL 20 MG CAP PO SCH (08:31)
[2017-01-28] MEDS: UMECLIDINIUM 62.5 MCG/VILANTEROL 25 MCG INHALER INH SCH (08:34)
--- NOTE | 2017-01-28 11:21 | PD.PSY.CON ---
Provisional Diagnosis Admission Date Jan 26, 2017 at 21:31 [place] I. Unspecified psychotic disorder History of Present Illness Service Psychiatry Consult Requested By Dr. 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 As per [place] act "patient unable to provide coherent history, sudden change, unable to care for self". As per ED note patient denied any SI, HI, perceptual disturbances but did state that her was "liar" and the patient was sent to the hospital from her outpatient provider Dr. Martinez with concerns of patient being unable to care for self at this time. Patient found sitting in hospital bed, cooperative with interview today. Patient states that she had a recent drug reaction to Lamictal that was prescribed to her recently 4 days ago by her outpatient psychiatrist, Dr. Forrest. She states that she had noticed that her speech had been or rapid, "talking fast" and feeling nervous; "I was hyper" . Patient states that her boyfriend had stated that she was a different person recently. Patient at this time is alert and oriented 3. Patient states that she had a "nervous breakdown" at return back to her outpatient psychiatrist office but was seen by a covering psychiatrist, Dr. Martinez who was covering for Dr. Canchola and had suggested that she be brought to the hospital due to [place] act "because I was very nervous and tearful". Patient this time has difficulty recalling recent events surrounding her recent start of Lamictal that she believed caused her presentation. Patient states that she having much difficulty with memory stating "I got my time like a fuse" and believes that he might have been due to previous stroke or having "nervous breakdown". Family psychiatric history: Mother with depression, no suicide in a family Past psychiatric history: Previous psychiatric diagnoses depression and anxiety , 1 previous psychiatric hospitalization years ago, no previous suicide attempt or self-injurious behavior. Outpatient psychiatric provider is . Recent medication regimen includes Wellbutrin, Prozac, Lamictal and previously Latuda. Patient denies any history of abuse. Substance use history: Patient reports marijuana use once per week, last time being 1 month ago, EtOH socially last happy one month ago patient denies use of any other illegal substances. Past medical history: COPD, hypertension, primary care doctor is in [place]. 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 Collateral contact: Linda [phone] 01/28/17 Above note dictated by Dr. George reviewed and agreed with. Patient seen in her room with nurse Varner. Patient alert though somewhat confused rambling with pressured speech is quite tangential given at times somewhat confusing history of this hospitalization. Patient is been admitted to Dr. George service. He has done first opinion petition supporting [place] act. I agree. Patient meets criteria for inpatient psychiatric hospitalization under the [place] act thus I will cosign second opinion petition supporting De [place] act Past Family Social History Coded Allergies: NSAIDS (Non-Steroidal Anti-Inflamma (Verified Allergy, Unknown, 01/26/17) Penicillins (Verified Allergy, Unknown, 01/26/17) Sulfa (Sulfonamide Antibiotics) (Verified Allergy, Unknown, 01/26/17) lurasidone (Verified Allergy, Unknown, 01/26/17) oxycodone (Verified Allergy, Unknown, 01/26/17) tamoxifen (Verified Allergy, Unknown, 01/26/17) tramadol (Verified Allergy, Unknown, 01/26/17) Reported Medications Umeclidinium-Vilanterol Inh (Anoro Ellipta Inh) 62.5-25 Mcg/Act Aero, 1 PUFF INH DAILY for COPD, #1 INHALER 0 Refills 01/27/17 Lisinopril (Lisinopril) 10 Mg Tab, 10 MG PO DAILY, #30 TAB 0 Refills 01/26/17 Albuterol 18 GM Inh (Ventolin Hfa 18 GM Inh) 90 Mcg/Act Aer, 2 PUFF INH Q4-6H Y for SHORTNESS OF BREATH, #1 INHALER 0 Refills 01/26/17 Lamotrigine (Lamotrigine) 25 Mg Tab, 25 MG PO DAILY for Control Seizures, #30 TAB 0 Refills 01/26/17 Hydroxyzine HCl (Hydroxyzine HCl) 10 Mg Tab, 10 MG PO BID, TAB 0 Refills 01/26/17 Bupropion HCl ER 24 HR (Bupropion HCl ER 24 HR) 150 Mg Tab, 150 MG PO DAILY for Control Depression, TAB 0 Refills 01/26/17 Ipratropium HFA 12.9 GM Inh (Atrovent HFA 12.9 GM Inh) 17 Mcg/Actuation Aer, 2 PUFF INH Q6HR Y for SHORTNESS OF BREATH, #1 INHALER 0 Refills 01/26/17 Trazodone (Trazodone) 50 Mg Tab, 50 MG PO HS for Control Depression, #30 TAB 0 Refills 01/26/17 Fluoxetine (Fluoxetine) 20 Mg Capsule, 20 MG PO DAILY, #30 CAP 0 Refills 01/26/17 Metoprolol Tartrate (Metoprolol Tartrate) 25 Mg Tab, 25 MG PO BID, #60 TAB 0 Refills 01/26/17 Current Medications Medications (Trade) Dose Ordered Sig/Sukhi Route Start Time Stop Time Status Last Admin (Tylenol) 650 mg Q4H PRN PO 01/26/17 21:30 01/27/17 13:51 (Milk Of Magnesia Liq) 30 ml DAILY PRN PO 01/26/17 21:30 (Mag-Al Plus Susp Liq) 30 ml Q6H PRN PO 01/26/17 21:30 (Proair Hfa Inh) 2 puff Q4HR PRN INH 01/27/17 07:15 (Prinivil) 10 mg DAILY PO 01/27/17 09:00 01/28/17 08:30 (Lopressor) 25 mg BID PO 01/27/17 09:00 01/28/17 08:30 (Desyrel) 50 mg HS PO 01/27/17 21:00 Future hold (Wellbutrin Sr) 150 mg DAILY PO 01/27/17 13:45 01/28/17 08:30 (PROzac) 20 mg DAILY PO 01/27/17 13:45 01/28/17 08:31 (Duoneb Neb) 1 ampule Q2HR NEB PRN NEB 01/27/17 17:00 Patient's Strengths (min. 2) Verbal and communicative Physical Exam Vital Signs Vital Signs Date Time Temp Pulse Resp B/P (MAP) Pulse Ox O2 Delivery O2 Flow Rate FiO2 01/28/17 05:37 97.4 68 18 149/69 (95) 96 01/26/17 22:42 Room Air Mental Status Examination Appearance: Appropriate, Well dressed/well groomed Consciousness: Alert Orientation: Person, Place, Situation Motor Activity: Normal gait Speech: Unremarkable Language: Adequate Fund of Knowledge: Poor (not tested) Attention and Concentration: Adequate Memory: Impaired Mood: Anxious Affect: Appropriate Thought Process & Associations: Linear Thought Content: Other (perseverates on finding the cause) Hallucination Type: None Delusion Type: None Suicidal Ideation: No Suicidal Plan: No Suicidal Intention: No Homicidal Ideation: No Homicidal Plan: No Homicidal Intention: No Insight: Poor Judgment: Poor Assessment & Plan Problem List: (1) Psychosis ICD Codes: F29 - Unspecified psychosis not due to a substance or known physiological condition Status: Acute Assessment & Plan Estimated LOS: days Problem Qualifiers (1) Psychosis: Qualified Codes: F29 - Unspecified psychosis not due to a substance or known physiological condition Woody Etienne MD Jan 28, 2017 11:21
--- NOTE | 2017-01-28 14:23 | HHI.PYPN ---
Subjective Remarks Patient is seen for follow-up, chart review. After discussion with staff reported the patient continues to be noted to be confused since yesterday denying any perceptual disturbances. Report from therapist stated the patient also was noted to be tangential and slightly disorganized yesterday with some pressured speech. Patient found sitting in day room noted to be cooperative in interview today. Patient states that she is feeling better and that her memory is better when she sees things here in the unit but was unable to specify how that is for her. Patient noted to be somewhat disorganized referring to her previous encounter on the inpatient unit that apparently was on the 10th floor of the hospital and states that her memories returning. Patient now states that medication she was restarted on was helpful in contrast to her report yesterday saying that her "crisis" was due to starting of Lamictal. Patient made reference to her having a clearer mind in the sense that she recalls previous episodes of having a "crisis with loss of memory". Patient this time denies any perceptual disturbances or delusions. Review of Systems Except as stated in HPI: all other systems reviewed are Neg Mental Status Examination Appearance: Appropriate, Well dressed/well groomed Consciousness: Alert Orientation: Person, Place, Situation Motor Activity: Normal gait Speech: Unremarkable Language: Adequate Fund of Knowledge: Poor (not tested) Attention and Concentration: Easily Distracted Memory: Impaired Mood: Anxious Affect: Appropriate Thought Process & Associations: Loose associations, Disorganized, Tangential Thought Content: Other (perseverates on feeling her memory is returning) Hallucination Type: None Delusion Type: None Suicidal Ideation: No Suicidal Plan: No Suicidal Intention: No Homicidal Ideation: No Homicidal Plan: No Homicidal Intention: No Insight: Poor Judgment: Poor Results Vitals/IOs Vital Signs Date Time Temp Pulse Resp B/P (MAP) Pulse Ox O2 Delivery O2 Flow Rate FiO2 01/28/17 05:37 97.4 68 18 149/69 (95) 96 01/26/17 22:42 Room Air Assessment & Plan Problem List: (1) Psychosis ICD Codes: F29 - Unspecified psychosis not due to a substance or known physiological condition Status: Acute Assessment & Plan Patient noted to be more disorganized today as well as tangential along with continued impaired memory of recent events that brought to the hospital. We'll start Abilify 2 mg by mouth twice a day for psychosis, continue rest of medications. Collateral pending from boyfriend. Continue recognitions as per primary medical team. Discharge planning in progress Justification for Cont. Inpt. At risk for further decompensation if at lower level of care Discharge Planning Patient return back to her residence once psychiatrically stable. Problem Qualifiers (1) Psychosis: Qualified Codes: F29 - Unspecified psychosis not due to a substance or known physiological condition Reinaldo George MD Jan 28, 2017 14:23
[2017-01-28] MEDS: ARIPiprazole 2 MG TAB PO SCH ×2 (14:39→21:54)
[2017-01-28 16:30] VITALS: BP 149/76; PULSE 78; RESP 18; TEMP 97.8; O2SAT 96
[2017-01-28 21:45] VITALS: BP 150/67; PULSE 84; RESP 16; O2SAT 95
[2017-01-28] MEDS: traZODone HCL 50 MG TAB PO SCH (21:54)
[2017-01-29 06:24] VITALS: BP 157/70; PULSE 72; RESP 17; TEMP 99.2; O2SAT 95
[2017-01-29] MEDS: UMECLIDINIUM 62.5 MCG/VILANTEROL 25 MCG INHALER INH SCH (08:41)
[2017-01-29] MEDS: METOPROLOL TARTRATE 25 MG TAB PO SCH ×2 (08:42→20:28)
[2017-01-29] MEDS: LISINOPRIL 10 MG TAB PO SCH (08:42)
[2017-01-29] MEDS: FLUoxetine HCL 20 MG CAP PO SCH (08:42)
[2017-01-29] MEDS: ARIPiprazole 2 MG TAB PO SCH ×2 (08:44→20:28)
[2017-01-29] MEDS: buPROPion HCL 150 MG SUSTAINED RELEASE TAB PO SCH (09:30)
[2017-01-29] MEDS: ACETAMINOPHEN 325 MG TAB PO PRN (09:31)
--- NOTE | 2017-01-29 12:15 | HHI.PYPN ---
Subjective Remarks Patient was seen and case discussed with nursing. Actions insight remains poor she is perseverative on discharge. She is alert and oriented 3. She denies any positive psychotic symptoms. She is helpful trying to help her hard of hearing roommate communicate. Tolerating medications well. Denies suicidal homicidal ideation intent or plan Mental Status Examination Appearance: Appropriate, Well dressed/well groomed Consciousness: Alert Orientation: Person, Place, Situation Motor Activity: Normal gait Speech: Unremarkable Language: Adequate Fund of Knowledge: Poor (not tested) Attention and Concentration: Easily Distracted Memory: Impaired Mood: Anxious Affect: Appropriate Thought Process & Associations: Loose associations, Disorganized, Tangential Thought Content: Other (perseverates on feeling her memory is returning) Hallucination Type: None Delusion Type: None Suicidal Ideation: No Suicidal Plan: No Suicidal Intention: No Homicidal Ideation: No Homicidal Plan: No Homicidal Intention: No Insight: Poor Judgment: Poor Results Vitals/IOs Vital Signs Date Time Temp Pulse Resp B/P (MAP) Pulse Ox O2 Delivery O2 Flow Rate FiO2 01/29/17 06:24 99.2 72 17 157/70 (99) 95 01/26/17 22:42 Room Air Intake and Output 01/29/17 01/29/17 01/30/17 08:00 16:00 00:00 Intake Total 240 ml Balance 240 ml Assessment & Plan Problem List: (1) Psychosis ICD Codes: F29 - Unspecified psychosis not due to a substance or known physiological condition Status: Acute Assessment & Plan Continue current treatment plan Justification for Cont. Inpt. Patient would decompensate in a less restrictive setting Problem Qualifiers (1) Psychosis: Qualified Codes: F29 - Unspecified psychosis not due to a substance or known physiological condition Ruben Ge DO Jan 29, 2017 12:15
[2017-01-29 18:00] VITALS: BP 155/67; PULSE 78; RESP 18; TEMP 98.7; O2SAT 97
[2017-01-29] MEDS: traZODone HCL 50 MG TAB PO SCH (20:28)
[2017-01-30 05:59] VITALS: BP 111/59; PULSE 75; RESP 20; TEMP 98.7
[2017-01-30] MEDS: ARIPiprazole 2 MG TAB PO SCH ×2 (08:39→20:02)
[2017-01-30] MEDS: FLUoxetine HCL 20 MG CAP PO SCH (08:39)
[2017-01-30] MEDS: buPROPion HCL 150 MG SUSTAINED RELEASE TAB PO SCH (08:39)
[2017-01-30] MEDS: UMECLIDINIUM 62.5 MCG/VILANTEROL 25 MCG INHALER INH SCH (08:40)
[2017-01-30] MEDS: METOPROLOL TARTRATE 25 MG TAB PO SCH ×2 (08:40→20:02)
[2017-01-30] MEDS: LISINOPRIL 10 MG TAB PO SCH (08:40)
--- NOTE | 2017-01-30 13:34 | HHI.PYPN ---
Subjective Remarks Patient was seen and case discussed with nursing. Patient remains perseverative on discharge. The involuntary process was explained to her. She continues to state she had a blackout and cannot remember the statement she made to make her doctor think that she could not take care of herself. Boyfriend came by and left a statement that he can help take care of her. Patient remains pleasant and is helping her roommate throughout the day Mental Status Examination Appearance: Appropriate, Well dressed/well groomed Consciousness: Alert Orientation: Person, Place, Situation Motor Activity: Normal gait Speech: Unremarkable Language: Adequate Fund of Knowledge: Poor (not tested) Attention and Concentration: Easily Distracted Memory: Impaired Mood: Anxious Affect: Appropriate Thought Process & Associations: Loose associations, Disorganized, Tangential Thought Content: Other (perseverates on feeling her memory is returning) Hallucination Type: None Delusion Type: None Suicidal Ideation: No Suicidal Plan: No Suicidal Intention: No Homicidal Ideation: No Homicidal Plan: No Homicidal Intention: No Insight: Poor Judgment: Poor Results Vitals/IOs Vital Signs Date Time Temp Pulse Resp B/P (MAP) Pulse Ox O2 Delivery O2 Flow Rate FiO2 01/30/17 05:59 98.7 75 20 111/59 (76) 01/29/17 18:00 97 01/26/17 22:42 Room Air Assessment & Plan Problem List: (1) Psychosis ICD Codes: F29 - Unspecified psychosis not due to a substance or known physiological condition Status: Acute Assessment & Plan Continue current treatment plan Justification for Cont. Inpt. Patient will decompensate in a less restrictive setting Problem Qualifiers (1) Psychosis: Qualified Codes: F29 - Unspecified psychosis not due to a substance or known physiological condition Ruben Ge DO Jan 30, 2017 13:34
[2017-01-30 18:18] VITALS: BP 156/72; PULSE 94; RESP 18; TEMP 97.8; O2SAT 98
[2017-01-30] MEDS: traZODone HCL 50 MG TAB PO SCH (20:02)
[2017-01-31 05:37] VITALS: BP 139/66; PULSE 78; RESP 18; TEMP 97.2; O2SAT 95
[2017-01-31] MEDS: FLUoxetine HCL 20 MG CAP PO SCH (09:21)
[2017-01-31] MEDS: ARIPiprazole 2 MG TAB PO SCH (09:21)
[2017-01-31] MEDS: buPROPion HCL 150 MG SUSTAINED RELEASE TAB PO SCH (09:22)
[2017-01-31] MEDS: METOPROLOL TARTRATE 25 MG TAB PO SCH (09:22)
[2017-01-31] MEDS: LISINOPRIL 10 MG TAB PO SCH (09:22)
[2017-01-31] MEDS: UMECLIDINIUM 62.5 MCG/VILANTEROL 25 MCG INHALER INH SCH (09:24)
[2017-01-31] MEDS ORDERED: FLUO20CA12 PO (11:31)
[2017-01-31] MEDS ORDERED: BUPR150CR PO (11:31)
[2017-01-31] MEDS ORDERED: ARIP2 PO (11:31)
[2017-01-31] MEDS ORDERED: TRAZ50TA12 PO (11:31)
[2017-01-31] MEDS ORDERED: METO25TA3 PO (11:31)
[2017-01-31] MEDS ORDERED: LISI10TA3 PO (11:31)
--- NOTE | 2017-01-31 11:31 | HHI.DS ---
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 As per [place] act "patient unable to provide coherent history, sudden change, unable to care for self". As per ED note patient denied any SI, HI, perceptual disturbances but did state that her was "liar" and the patient was sent to the hospital from her outpatient provider Dr. Martinez with concerns of patient being unable to care for self at this time. Patient found sitting in hospital bed, cooperative with interview today. Patient states that she had a recent drug reaction to Lamictal that was prescribed to her recently 4 days ago by her outpatient psychiatrist, Dr. Forrest. She states that she had noticed that her speech had been or rapid, "talking fast" and feeling nervous; "I was hyper" . Patient states that her boyfriend had stated that she was a different person recently. Patient at this time is alert and oriented 3. Patient states that she had a "nervous breakdown" at return back to her outpatient psychiatrist office but was seen by a covering psychiatrist, Dr. Martinez who was covering for Dr. Canchola and had suggested that she be brought to the hospital due to [place] act "because I was very nervous and tearful". Patient this time has difficulty recalling recent events surrounding her recent start of Lamictal that she believed caused her presentation. Patient states that she having much difficulty with memory stating "I got my time like a fuse" and believes that he might have been due to previous stroke or having "nervous breakdown". Family psychiatric history: Mother with depression, no suicide in a family Past psychiatric history: Previous psychiatric diagnoses depression and anxiety , 1 previous psychiatric hospitalization years ago, no previous suicide attempt or self-injurious behavior. Outpatient psychiatric provider is . Recent medication regimen includes Wellbutrin, Prozac, Lamictal and previously Latuda. Patient denies any history of abuse. Substance use history: Patient reports marijuana use once per week, last time being 1 month ago, EtOH socially last happy one month ago patient denies use of any other illegal substances. Past medical history: COPD, hypertension, primary care doctor is in [place]. 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 Collateral contact: Linda [phone] 01/28/17 Above note dictated by Dr. George reviewed and agreed with. Patient seen in her room with nurse Varner. Patient alert though somewhat confused rambling with pressured speech is quite tangential given at times somewhat confusing history of this hospitalization. Patient is been admitted to Dr. George service. He has done first opinion petition supporting [place] act. I agree. 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 Patient was started on aripiprazole 2mg PO BID and continued on fluoxetine 20mg PO daily and bupropion 150mg PO daily which she tolerated well. Patient was noted to be with stable mood, participatory in groups and activities, and cooperative with staff. She was noted to have some difficulty with memory which states has happened in the past when she had been very stressed. She denied any SI, HI, AVH or delusions. She agrees to continue to engage in therapy treatment and outpatient follow up for continuity of care. Patient was counseled on abstinence from alcohol use. Supportive psychotherapy provided. Patient advised to call 911 or go nearest ED in case of emergency. Patient agrees with plan. Results Blood Pressure 139 / 66 Vital Signs Date Time Temp Pulse Resp B/P (MAP) Pulse Ox O2 Delivery O2 Flow Rate FiO2 01/31/17 05:37 97.2 78 18 139/66 (90) 95 Laboratory Results Test 01/27/17 06:28 Cholesterol Level 192 MG/DL (120-200) HDL Cholesterol 117.0 MG/DL (40.0-60.0) Hemoglobin A1c 5.1 % (4.3-6.0) LDL Cholesterol 61 MG/DL (0-99) Triglycerides Level 72 MG/DL (42-150) Summary of Procedures None Imaging Last Impressions Head CT 01/26/17 0000 Signed Impressions: Service Date/Time: Tuesday, January 26, 2017 18:12 - CONCLUSION: Negative noncontrast CT brain. Chris Hernandez MD Pending results at discharge: No Medications # of Antipsychotic meds at D/C: 1 Approp Antipsych med options 1 - Minimum of three failed multiple trials of monotherapy. 2 - Documented plan to taper to monotherapy due to previous use of multiple meds OR cross-taper in progress at D/C. 3 - Documentation of augmentation of Clozapine. 4 - Justification other than those listed in allowable values 1-3, document here : Discharge Discharge Date: Jan 31, 2017 Discharge Diagnosis: (1) Psychosis ICD Code: F29 - Unspecified psychosis not due to a substance or known physiological condition Status: Acute Pt Condition on Discharge: Stable Discharge Disposition: Discharge Home Discharge Instructions Diet Instructions: Heart Healthy Diet Activities you can perform: Regular-No Restrictions Scheduled Appointment: [facility] Appointment Date: Feb 03, 2017 Appointment Time: 500pm Discharge Time > 30 minutes Mental Status Examination Appearance: Appropriate, Well dressed/well groomed Consciousness: Alert Orientation: Person, Place, Situation Motor Activity: Normal gait Speech: Unremarkable Language: Adequate Fund of Knowledge: Inadequate Attention and Concentration: Adequate Memory: Impaired Mood: Appropriate Affect: Appropriate Thought Process & Associations: Logical, Goal directed, Disorganized, Linear Thought Content: Appropriate Hallucination Type: None Delusion Type: None Suicidal Ideation: No Suicidal Plan: No Suicidal Intention: No Homicidal Ideation: No Homicidal Plan: No Homicidal Intention: No Insight: Fair Judgment: Impulsive Discharge/Advance Care Plan Health Problems: (1) Psychosis Goals to promote your health * To prevent worsening of your condition and complications * To maintain your health at the optimal level Directions to meet your goals Take your medications as prescribed Follow your dietary instruction Follow activity as directed Keep your appointments as scheduled Take your immunizations and boosters as scheduled If your symptoms worsen call your PCP, if no PCP go to Urgent Care Center or Emergency Room For 27/09 questions related to your inpatient stay or results of tests pending at discharge, please contact Dr. Reinaldo George at Smoking is Dangerous to Your Health. Avoid second hand smoking Problem Qualifiers (1) Psychosis: Qualified Codes: F29 - Unspecified psychosis not due to a substance or known physiological condition Reinaldo George MD Jan 31, 2017 11:31
== END 2017-01-31 14:00 | disposition home or self-care (01) | DRG 885 ==
LOC: NEPD 16:52 → NEDA 21:31 → H250 23:30 → H260 01-30 19:13
PROVIDERS: ADMIT Student in an Organized Health Care Education/Training Program; ATTEND Student in an Organized Health Care Education/Training Program
DX: F29 Unspecified psychosis not due to a substance or known physiological condition (principal); J44.9 Chronic obstructive pulmonary disease, unspecified; I10 Essential (primary) hypertension; F32.9 Major depressive disorder, single episode, unspecified; F41.9 Anxiety disorder, unspecified; F12.90 Cannabis use, unspecified, uncomplicated; Z96.651 Presence of right artificial knee joint; Z79.899 Other long term (current) drug therapy; Z81.8 Family history of other mental and behavioral disorders; Z85.3 Personal history of malignant neoplasm of breast; Z92.3 Personal history of irradiation
CPT/HCPCS: 70450; 80048; 80053; 80061; 80307; 81001; 82306; 82607; 83036; 85025; 93005; 99285